=== PATIENT | female | born 1970 | race Caucasian/White ===

== ENCOUNTER → 2021-05-21 02:32 | Outpatient (CLI) | payer BC, SELFPAY ==
[2021-05-21 16:20] LABS: SARS-CoV-2 RNA PCR Negative
== END ==
PROVIDERS: PCP Nurse Practitioner Family; Visit Provider Plastic Surgery
DX: Z01.812 Encounter for preprocedural laboratory examination (principal); Z20.822 Contact with and (suspected) exposure to COVID-19
CPT/HCPCS: C9803; U0003; U0005

== ENCOUNTER 2021-05-21 09:25 | Outpatient (CLI) | payer BC, SELFPAY ==
[2021-05-21 10:27] LABS: Anion Gap 8 mmol/L (8-16); Blood Urea Nitrogen 10 mg/dL (7-17); Calcium 9.3 mg/dL (8.4-10.2); Carbon Dioxide 27 mmol/L (22-30); Chloride 102 mmol/L (98-107); Estimated Glomerular Filt Rate > 60; Glucose 103 mg/dL (65-110); Potassium 3.5 mmol/L (3.4-5.0); Sodium 137 mmol/L (137-145)
== END 2021-05-21 09:26 | disposition home or self-care (01) ==
LOC: ANHSURGERY 09:31
PROVIDERS: Anesthesiology; PCP Nurse Practitioner Family; Visit Provider Plastic Surgery
DX: Z01.812 Encounter for preprocedural laboratory examination (principal); Z79.899 Other long term (current) drug therapy
CPT/HCPCS: 36415; 80048; C9803; U0003; U0005

== ENCOUNTER 2021-05-24 00:42 | Day surgery (SDC) | payer BC, SELFPAY ==
[2021-05-18 15:22] VITALS: BMI 28.6
--- NOTE | 2021-05-24 07:18 | WPDHPUPDATE1 ---
History and Physical Update Update Date/Time: 05/24/21 07:18 History and Physical has been reviewed, including an updated exam of the patient. There are NO changes in the patient's condition. Risks, benefits, and alternatives have been discussed and questions answered. Patient agrees to proceed with procedure.
--- NOTE | 2021-05-24 09:29 | P.PNAN_ITS ---
Anes - Initial Pre Proc Eval Procedure: Operation Date: 05/24/21 10:30 Proposed Procedures p Right Open Carpal Tunnel Release - Jorge Hogue MD Date/Time: 05/24/21 09:29 Surgeon: Jorge Hogue MD Pre Op Diagnosis: Rt Carpal Tunnel Syndrome Patient Data Age: 51 Gender: F Height: 1.69 m Weight: 81.65 kg Allergies Allergy/AdvReac Type Severity Reaction Status Date / Time No Known Allergies Allergy Verified 05/18/21 15:21 Home Medications Medication Instructions Recorded Confirmed Type hydrochlorothiazide 12.5 mg PO DAILY 05/18/21 05/18/21 History lisinopril 10 mg PO DAILY 05/18/21 05/18/21 History Patient hx anesthesia problems: none Family hx anesthesia problems: none Results Review: All pre-operative results and documents have been reviewed as part of the pre-operative evaluation. [facility] Past Medical History Medical History (Updated 05/24/21 @ 09:29 by Kee Sullivan MD) HTN (hypertension) Overweight Surgical History Surgical History (Updated 05/24/21 @ 09:30 by Kee Sullivan MD) History of section Social History Social History Smoking status: Never smoker Alcohol intake: never Substance use: never Substance use type: does not use Living arrangements: with family Spiritual care concerns: No Anes - Eval Final PreProcedure Day of Procedure 05/24/21 09:29 Patient weight: overweight Heart: regular rate and rhythm Lungs: clear to auscultation Airway: Mallampati scale class II Neurological: alert and oriented Last oral intake: >/= 8 hours ASA classification: II Emergent: no Anesthetic plan: proceed Anesthesia type and monitoring: general GIVS and standard monitoring Results Review: All pre-operative results and documents have been reviewed as part of the pre-operative evaluation. Informed Consent: The patient's anesthetic plan and its attendant risks and benefits were discussed with the patient/family/POA. Questions were solicited and answers provided to the satisfaction of the patient/family/POA.
[2021-05-24 09:33] VITALS: BP 131/71; PULSE 63; RESP 16; TEMP 36.3; O2SAT 100
[2021-05-24] MEDS: LACTATED RINGERS 1,000 ML 30 ML IV CONT (09:50)
[2021-05-24] MEDS: ONDANSETRON INJ 4 MG/2 ML VIAL IV PUSH (09:51)
[2021-05-24] MEDS: FAMOTIDINE 20 MG/2 ML VIAL IV PUSH (09:53)
--- NOTE | 2021-05-24 10:03 | SUR.PREOP ---
vitaly coughlin was unable to get pt ring off. pt signed a jewlery waver and was informed and understood the possible risks. md castillo informed.
[2021-05-24] MEDS: LIDO 1%/EPINEPHRINE/PF 1:200,000 30 ML VIAL INFILTRATE (10:27)
[2021-05-24 10:34] VITALS: BP 123/72; PULSE 69; RESP 16; O2SAT 100
[2021-05-24 11:00] VITALS: BP 120/69; PULSE 63; RESP 16; O2SAT 99
[2021-05-24 11:20] VITALS: BP 104/58; PULSE 52; RESP 16
--- NOTE | 2021-05-24 11:45 | W.PM.PROC2 ---
Procedure Note - Detailed Date of Procedure 05/24/21 Pre-op Diagnosis Rt Carpal Tunnel Syndrome Post-op Diagnosis same Procedure Performed Right open carpal tunnel release Surgeon Jorge Hogue MD Anesthesia MAC Description of Procedure The site on the volar wrist was marked as the patient waited in the holding area. She was taken to the operating room placed supine on the operating table. A time-out was held and confirmed. The extremity was prepped and draped in usual fashion she was given IV sedation. The site was remarked for the incision and locally infiltrated with 1% lidocaine with epinephrine. The tourniquet was inflated to 250 mmHg. The incision was made as marked on the right volar wrist. A dissection was carried bluntly through to the palmar aponeurosis. This and the palmar retinaculum was incised with a 15 blade. Under 3 point retraction ligament was divided distally and proximally for complete release. No unusual anatomy was noted. The skin was closed with interrupted 5 0 suture and small flexible bandage was applied. She is discharge instructions in wound care and follow-up.
== END 2021-05-24 11:33 | disposition home or self-care (01) ==
PROVIDERS: PCP Nurse Practitioner Family; Visit Provider Plastic Surgery
PROC: (CPT 64721; principal; 2021-05-24 10:30)
DX: G56.01 Carpal tunnel syndrome, right upper limb (principal); I10 Essential (primary) hypertension
CPT/HCPCS: 64721; A9270; J2250; J2405; J2704; J3010; J7120

== ENCOUNTER → 2021-06-25 03:52 | Outpatient (CLI) | payer BC, SELFPAY ==
[2021-06-25 19:12] LABS: SARS-CoV-2 RNA PCR Negative
== END ==
PROVIDERS: PCP Nurse Practitioner Family; Visit Provider Plastic Surgery
DX: Z01.812 Encounter for preprocedural laboratory examination (principal); Z20.822 Contact with and (suspected) exposure to COVID-19
CPT/HCPCS: C9803; U0003; U0005

== ENCOUNTER 2021-06-28 01:08 | Day surgery (SDC) | payer BC, SELFPAY ==
[2021-06-25 08:40] VITALS: BMI 30.8
--- NOTE | 2021-06-25 08:44 | PC.NURSE ---
Report to the Outpatient Waiting Room, entrance under the green pavilion located off [facility], at time 0600 on date 06/28/21. OR Time: 0730. - You and your visitor will be asked a series of questions to screen for COVID 19 for your protection. - A mask is required within the hospital. - Only one visitor is allowed at this time. Patient visitors will be guided where to wait when not with patient. Preoperative COVID Testing Requirements: No COVID Test needed if: (proof is required; if not received patient will have Rapid Test prior to entry) - Patient has received COVID Vaccine at least 14 days prior to procedure date or - Patient has positive COVID test result within last 90 days of surgery date. COVID Test needed if above criteria is not met If not COVID vaccinated a COVID test must be conducted within 72 hours of surgery and patient is asked to isolate self from time of testing until procedure. You will go to the [facility] for your COVID testing. The [facility] is located at the corner of [address] [facility]. COVID TEST 06/25 AT 8:45 You will only be called if COVID results are positive and your surgeon may reschedule your elective surgery date. Patients may have clear liquids (water, carbonated beverages, clear teas, apple juice) until 3 hours prior to surgery with a maximum of 20 ounces. - No food from midnight until time of surgery - Infants may have breast milk until 4 hours before surgery, formula 6 hours prior to surgery. - Children will be allowed to drink immediately following surgery. If applicable, please bring a bottle or sippy cup to assist with drinking. Juice, water, soda, and popsicles are readily available. For infants on formula, please bring formula the day of surgery. Pacifiers are allowed. Take the following medications with a SIP of water the morning of surgery: NONE Medications to discontinue per physician: N/A Date to take last dose: N/A Please no make-up, nail spanish, hairspray, perfume, deodorant, or body powder the day of surgery. No jewelry (including any body piercings) or valuables the day of surgery, leave them at home. Please take a shower or bath the night before, or the morning of, surgery with an antibacterial soap. Wear comfortable, loose fitting clothing. Children are encouraged to wear pajamas. - Jewelry must be removed prior to entering the operating room. Rings and piercings that are not removed may be cut off. - The hospital will not accept responsibility for valuables. - Please leave all valuables, including medications, at home the day of surgery. If you are going home after surgery, a licensed lyft driver must drive you home. - NO public transportation without another adult. - We recommend that an adult stay with you for 24 hours following discharge. - We also recommend that you do not drive, make important decision, drink alcoholic beverages, or take any drugs that were not prescribed by your health care provider for at least 24 hours after your discharge time. For Pediatric surgeries, we recommend two adults accompany the child home (only one inside the building at this time). Follow any additional instructions given to you from your surgeon. Telephone instructions given to ROSENDA BRANHAM and asked if any additional questions and then verbalized understanding. Patient advised to call surgeon office or pre surgery nurse liaison [phone] if any additional questions.
--- NOTE | 2021-06-27 13:31 | P.PNAN_ITS ---
Anes - Initial Pre Proc Eval Procedure: Operation Date: 06/28/21 07:30 Proposed Procedures p Left Open Carpal Tunnel Release - Jorge Hogue MD Date/Time: 06/27/21 13:31 Surgeon: Jorge Hogue MD Pre Op Diagnosis: Lt Carpal Tunnel Syndrome Patient Data Age: 51 Gender: F Height: 1.69 m Weight: 88 kg Allergies Allergy/AdvReac Type Severity Reaction Status Date / Time No Known Allergies Allergy Verified 06/28/21 06:04 Home Medications Medication Instructions Recorded Confirmed Type hydrochlorothiazide 12.5 mg PO DAILY 05/18/21 06/28/21 History lisinopril 10 mg PO DAILY 05/18/21 06/28/21 History Patient hx anesthesia problems: none Family hx anesthesia problems: none Results Review: All pre-operative results and documents have been reviewed as part of the pre-operative evaluation. [facility] Past Medical History Medical History (Updated 05/24/21 @ 09:29 by Kee Sullivan MD) HTN (hypertension) Overweight Surgical History Surgical History (Updated 05/24/21 @ 09:30 by Kee Sullivan MD) History of section Social History Social History Smoking status: Never smoker Alcohol intake: never Substance use: never Substance use type: does not use Living arrangements: with family Spiritual care concerns: No Anes - Eval Final PreProcedure Day of Procedure 06/27/21 13:31 Patient weight: obese Heart: regular rate and rhythm Lungs: clear to auscultation and normal air movement Airway: Mallampati scale class II Neurological: alert and oriented Last oral intake: >/= 8 hours ASA classification: III Emergent: no Anesthetic plan: proceed Anesthesia type and monitoring: general GIVS and standard monitoring Results Review: All pre-operative results and documents have been reviewed as part of the pre-operative evaluation. Informed Consent: The patient's anesthetic plan and its attendant risks and benefits were discussed with the patient/family/POA. Questions were solicited and answers provided to the satisfaction of the patient/family/POA.
[2021-06-28 06:15] VITALS: BP 120/77; PULSE 64; RESP 20; TEMP 36.6; O2SAT 100
[2021-06-28] MEDS: LACTATED RINGERS 1,000 ML 30 ML IV CONT (06:25)
--- NOTE | 2021-06-28 07:14 | WPDHPUPDATE1 ---
History and Physical Update Update Date/Time: 06/28/21 07:14 History and Physical has been reviewed, including an updated exam of the patient. There are NO changes in the patient's condition. Risks, benefits, and alternatives have been discussed and questions answered. Patient agrees to proceed with procedure.
[2021-06-28] MEDS: LIDO 1%/EPINEPHRINE 1:100,000 50 ML VIAL 7 ML INFILTRATE (07:26)
[2021-06-28] MEDS: BACITRACIN OINTMENT 15 GM TUBE 1 APPLIC TOPICAL (07:50)
[2021-06-28 08:03] VITALS: BP 89/55; PULSE 58; RESP 12
--- NOTE | 2021-06-28 08:05 | P.OP_ITS ---
Procedure Note - Detailed Date of Procedure 06/28/21 Pre-op Diagnosis Lt Carpal Tunnel Syndrome Post-op Diagnosis same Procedure Performed Left open carpal tunnel release Surgeon Jorge Hogue MD Anesthesia MAC Description of Procedure The left volar wrist was marked as the patient waited in the holding area. He was taken to the operating room placed supine on the operating table. A time- out was held and confirmed. The site was marked and locally infiltrated with 1% lidocaine with epinephrine. The tourniquet was inflated to 250 mmHg. The incision was made as marked. Dissection was carried bluntly through the subcutaneous tissue to the palmar aponeurosis. This and the carpal retinaculum were incised with a 15. Blade opening the canal. Under 3 point retraction the ligament was divided distally and proximally to completely release it. There was no unusual anatomy noted. The skin wound was closed with interrupted 5-0 nylon suture and the usual bandage was applied. She is discharged home with instructions in wound care and follow-up. She has a prescription for hydrocodone 7. Estimated Blood Loss 0 Drains No Packing No Pathology none sent Complications No immediate complications Condition stable Disposition same day
[2021-06-28 08:30] VITALS: BP 96/78; PULSE 70; RESP 20
[2021-06-28 09:00] VITALS: BP 90/50; PULSE 70; RESP 20
[2021-06-28 09:20] VITALS: BP 126/75; PULSE 60; RESP 20
== END 2021-06-28 09:25 | disposition home or self-care (01) ==
PROVIDERS: PCP Nurse Practitioner Family; Visit Provider Plastic Surgery
PROC: (CPT 64721; principal; 2021-06-28 07:30)
DX: G56.02 Carpal tunnel syndrome, left upper limb (principal); I10 Essential (primary) hypertension; E66.9 Obesity, unspecified; Z68.30 Body mass index [BMI] 30.0-30.9, adult
CPT/HCPCS: 64721; A9270; J2250; J2405; J2704; J3010; J7120

== ENCOUNTER 2023-02-22 19:12 | Emergency (ER) | payer BC, SELFPAY ==
[2023-02-22] VITALS (13 sets, daily range): BP systolic 137–176; BP diastolic 81–102; PULSE 54–71; RESP 16–22; TEMP 36.2; O2SAT 98–100
[2023-02-22] MEDS: diphenhydrAMINE HCl INJ 50 MG/ML VIAL 25 MG IV PUSH (20:06)
[2023-02-22] MEDS: METOCLOPRAMIDE HCL INJ 10 MG/2 ML VIAL IV PUSH (20:07)
[2023-02-22 20:16] LABS: Basophils Absolute Auto 0.1 K/mm3 (0.0-0.1); Basophils Percent Auto 0.7 % (0.2-1.2); Eosinophils Absolute Auto 0.1 K/mm3 (0-0.3); Eosinophils Percent Auto 1.8 % (0-4.4); Hematocrit 34.9 % (37.0-47.0); Hemoglobin 10.6 g/dL (12.0-15.0); Immature Granulocyte Absolute 0.01 K/mm3 (0.00-0.031); Immature Granulocyte Percent A 0.1 % (0-0.5); Lymphocytes Absolute Auto 1.27 K/mm3 (0.9-3.2); Lymphocytes Percent Auto 17.6 % (18.3-44.2); Mean Corpuscular HGB Conc 30.4 g/dl (32-36); Mean Corpuscular Hemoglobin 23.2 pg (26-34); Mean Corpuscular Volume 76.5 fl (80-100); Mean Platelet Volume 10.1 fl (7.4-10.4); Monocytes Absolute Auto 0.7 K/mm3 (0.1-0.6); Monocytes Percent Auto 9.4 % (2.6-8.5); Neutrophils Absolute Auto 5.1 K/mm3 (1.3-6.7); Neutrophils Percent Auto 70.4 % (45.5-73.1); Platelet Count Result 316 k/mm3 (150-375); Red Blood Count 4.56 M/mm3 (4.2-5.4); Red Cell Distribution Width 18.3 % (11.5-14.5); White Blood Count 7.2 K/mm3 (4.5-10.0)
[2023-02-22 20:28] LABS: Alanine Aminotransferase 25 U/L (6-35); Albumin Level 4.2 g/dL (3.5-5.1); Alkaline Phosphatase 94 U/L (38-126); Anion Gap 9 mmol/L (8-16); Aspartate Amino Transferase 27 U/L (14-36); Bilirubin,Total 0.3 mg/dL (0.2-1.3); Blood Urea Nitrogen 12 mg/dL (7-17); Carbon Dioxide 26 mmol/L (22-30); Chloride 104 mmol/L (98-107); Estimated CRCL calculation 83 ml/min; Estimated Glomerular Filt Rate > 60; Glucose 106 mg/dL (65-110); Potassium 3.8 mmol/L (3.4-5.0); Sodium 139 mmol/L (137-145)
--- NOTE | 2023-02-22 20:52 | ED.HA ---
HPI - Headache General Chief Complaint: Headache Stated Complaint: htn, headache Time Seen by Provider: 02/22/23 19:19 History of Present Illness HPI Narrative: Patient with history of hypertension presents here with a headache, and nausea and some slight photophobia. It started about 2 days ago, she has been trying to take Tylenol without much improvement, she is worried that might be from her high blood pressure. She has been taking her blood pressure medications. She also states she is menopausal and has been having light vaginal bleeding for a month, she has been trying to follow-up with an [employer] Related Data Home Medications Medication Instructions Recorded Confirmed hydrochlorothiazide 12.5 mg tablet 12.5 mg PO DAILY 05/18/21 06/28/21 lisinopril 10 mg tablet 10 mg PO DAILY 05/18/21 06/28/21 Allergies Allergy/AdvReac Type Severity Reaction Status Date / Time No Known Allergies Allergy Verified 06/28/21 06:04 Review of Systems Review of Systems: CONST: No fever. HEENT: No sore throat C/V: No chest pain RESP: No cough GI: Slight abdominal cramping with bleeding : Vaginal spotting/bleeding M/S: No joint pain. SKIN: No rash. NEURO: Headache without focal numbness or weakness PSYCH: Slightly nervous about her blood pressure PMFSH Past Medical History Medical History (Updated 02/22/23 @ 20:54 by Naomy Ace MD) HTN (hypertension) Overweight Surgical History Surgical History (Updated 05/24/21 @ 09:30 by Kee Sullivan MD) History of section Social History Social History Smoking status: Never smoker Alcohol intake: never Substance use: never Substance use type: does not use Living arrangements: with family Spiritual care concerns: No Exam Narrative: EXAMINATION OF ORGAN SYSTEMS/BODY AREAS: Constitutional: Vital signs per nursing GENERAL: Slightly wincing in the light HEAD: Normal with no signs of head trauma. EYES: EOMI, conjunctiva normal ENT: Hearing grossly intact, normal neck range of motion without meningismus LUNGS: Nonlabored breathing. HEART: [Regular rate and rhythm] ABD: [Soft], [nontender to palpation] EXT: Normal range of motion, no lower extremity swelling SKIN: [No rashes or lesions.] NEURO: [Alert and oriented x 3. No gross focal sensory or strength deficits.] PSYCH: Slightly nervous affect Course Vital Signs Vital signs: Vital Signs Temperature 97.1 F L 02/22/23 19:13 Pulse Rate 71 02/22/23 19:13 Respiratory Rate 16 02/22/23 19:13 Blood Pressure 163/102 H 02/22/23 19:13 Pulse Oximetry 100 02/22/23 19:13 Oxygen Delivery Room Air 02/22/23 19:13 Temperature 97.1 F L 02/22/23 19:13 Pulse Rate 71 02/22/23 19:13 Respiratory Rate 16 02/22/23 19:13 Blood Pressure 163/102 H 02/22/23 19:13 Pulse Oximetry 100 02/22/23 19:13 Oxygen Delivery Room Air 02/22/23 19:13 MDM - Headache MDM Narrative Medical decision making narrative: 52-year-old presents to the emergency department for headache. Patient is hemodynamically stable. No focal neurological or cranial nerve deficits on exam. No meningeal signs. The headache was gradual in onset, it is not exertional and does not appear consistent with subarachnoid hemorrhage or intracranial bleeding. No trauma. Her BP is slightly elevated here and she has no signs or symptoms of end organ dysfunction; no chest pain or shortness of breath, neurological deficits, severe headaches, visual disturbance, oliguria, or symptoms of dissection/AAA). Patient is given headache cocktail including Reglan, Benadryl. On reevaluation, the patient feels significantly better with the headache resolved. No neurological deficits. Her BP has also normalized to 137/81. Patient is comfortable going home for outpatient follow-up with primary care physician and I will also give her a referral for OB for her vaginal spotting, and she
== END 2023-02-22 21:07 | disposition home or self-care (01) ==
PROVIDERS: Emergency Provider Emergency Medicine; PCP Nurse Practitioner Family
DX: R51.9 Headache, unspecified (principal); I10 Essential (primary) hypertension; E66.3 Overweight; Z68.30 Body mass index [BMI] 30.0-30.9, adult
CPT/HCPCS: 36415; 80053; 85025; 96374; 96375; 99284; J1200; J2765

== ENCOUNTER 2023-12-16 12:32 | Emergency (ER) | payer BC, SELFPAY ==
--- NOTE | ~2023-12-16 | XR_ITS ---
EXAMINATION: XR ankle RT min 3V DATE: 12/16/2023 12:55 INDICATION: Fall. TECHNIQUE: 4 views of right ankle were obtained. COMPARISON: None. FINDINGS: There is a chip fracture of distal fibula. Joint spaces are normal. There is ankle soft tis binu swelling. IMPRESSION: 1. Chip avulsion fracture of distal fibula. Reviewed, dictated and finalized at location A.
[2023-12-16 12:34] VITALS: BP 183/80; PULSE 68; RESP 20; TEMP 36.8; O2SAT 98
--- NOTE | 2023-12-16 13:41 | ED.GENADULT ---
[facility] - General Adult General Chief complaint: Extremity Injury, Lower Stated complaint: right ankle pain Time Seen by Provider: 12/16/23 12:43 Source: patient Mode of arrival: ambulatory Limitations: no limitations History of Present Illness HPI narrative: This is a 53-year-old female who presents to the ED with chief complaint of right ankle injury that occurred just prior to arrival. [place] off of the walkway. Reports an inversion injury to the ankle. Reports immediate swelling and pain and difficulty with weight-bearing. Denies numbness, weakness or any further site of injury Related Data Home Medications Medication Instructions Recorded Confirmed hydrochlorothiazide 12.5 mg tablet 12.5 mg PO DAILY 05/18/21 06/28/21 lisinopril 10 mg tablet 10 mg PO DAILY 05/18/21 06/28/21 Allergies Allergy/AdvReac Type Severity Reaction Status Date / Time No Known Allergies Allergy Verified 06/28/21 06:04 Review of Systems Review of Systems: All systems as dictated in [facility] Past Medical History Medical History (Updated 12/16/23 @ 13:43 by James Walter PA-C) HTN (hypertension) Overweight Surgical History Surgical History (Updated 05/24/21 @ 09:30 by Kee Sullivan MD) History of section Social History Social History Smoking status: Never smoker Alcohol intake: never Substance use: never Substance use type: does not use Living arrangements: with family Spiritual care concerns: No Exam Narrative: GENERAL: Well-appearing, well-nourished, and in no acute distress. HEAD: Normocephalic, atraumatic. EYES: PERRLA and EOMI. ENT: Nares clear, no rhinorrhea or epistaxis. Mucous membranes moist. Oropharynx without tonsillar hypertrophy exudate or other lesions. NECK: Supple. No adenopathy or masses. CHEST: No respiratory distress. Clear to auscultation. No wheezes rales or rhonchi HEART: Regular rate and rhythm. No murmur heard. Normal peripheral pulses. ABDOMEN: Soft, nontender, nondistended, normal active bowel sounds. MSK: Right lower extremity: Moderate swelling, tenderness about the right ankle joint. No bruising. Neurovascular intact distally. Left Lower extremity: Benign SKIN: Warm, dry, no rash. NEURO: Alert and oriented x3. No focal deficits. PSYCH: Normal mood and affect. Course Vital Signs Vital signs: Vital Signs Temperature 98.3 F 12/16/23 12:34 Pulse Rate 68 12/16/23 12:34 Respiratory Rate 20 12/16/23 12:34 Blood Pressure 183/80 H 12/16/23 12:34 Pulse Oximetry 98 12/16/23 12:34 Oxygen Delivery Room Air 12/16/23 12:34 Temperature 98.3 F 12/16/23 12:34 Pulse Rate 74 12/16/23 14:07 Respiratory Rate 18 12/16/23 14:07 Blood Pressure 150/72 H 12/16/23 14:07 Pulse Oximetry 98 12/16/23 14:07 Oxygen Delivery Room Air 12/16/23 12:34 Medical Decision Making MDM Narrative Medical decision making narrative: This is a 53-year-old female who presents to the ED with chief complaint right ankle injury that occurred just prior to arrival. Vitals are normal. Exam shows right ankle swelling and tenderness. X-rays do not show any acute fracture. There is a lateral avulsion fracture to the fibula. Consistent with ankle sprain. Patient was given Jackson wrap and crutches here. Pt will be discharged in stable condition. Return precautions given and supportive measures discussed. Pt is understanding and agreeable with plan for discharge and follow-up with PCP. Vital Signs Vital Signs: Vital Signs Temperature 98.3 F 12/16/23 12:34 Pulse Rate 68 12/16/23 12:34 Respiratory Rate 20 12/16/23 12:34 Blood Pressure 183/80 H 12/16/23 12:34 Pulse Oximetry 98 12/16/23 12:34 Oxygen Delivery Room Air 12/16/23 12:34 Temperature 98.3 F 12/16/23 12:34 Pulse Rate 74 12/16/23 14:07 Respiratory Rate 18
[2023-12-16 14:07] VITALS: BP 150/72; PULSE 74; RESP 18; O2SAT 98
== END 2023-12-16 14:08 | disposition home or self-care (01) ==
PROVIDERS: Emergency Provider Physician Assistant; PCP Nurse Practitioner Family
DX: S93.401A Sprain of unspecified ligament of right ankle, initial encounter (principal); S96.911A Strain of unspecified muscle and tendon at ankle and foot level, right foot, initial encounter; I10 Essential (primary) hypertension; E66.3 Overweight; Z68.32 Body mass index [BMI] 32.0-32.9, adult; X50.9XXA Other and unspecified overexertion or strenuous movements or postures, initial encounter
CPT/HCPCS: 73610; 99283